=== PATIENT | female | born 1990 | race American Indian/Alaskan Native ===

== ENCOUNTER 2021-05-24 10:47 | Emergency (ER) | payer MEDICAID ==
[2021-05-24] MEDS ORDERED: ACETAMINOPHEN 500 MG TAB PO STA (11:28)
[2021-05-24] MEDS ORDERED: IBUPROFEN 800 MG TAB PO STA (11:28)
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
[2021-05-24 13:28] VITALS: BP 119/79
== END 2021-05-24 15:25 | disposition home or self-care (01) ==
LOC: ED 10:47
DX: M54.5 Low back pain (principal); V89.2XXA Person injured in unspecified motor-vehicle accident, traffic, initial encounter; Y93.89 Activity, other specified; Y92.89 Other specified places as the place of occurrence of the external cause; Y99.8 Other external cause status
CPT/HCPCS: 72100; 99283

== ENCOUNTER 2021-05-25 12:30 | Emergency (ER) | payer MEDICAID ==
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
[2021-05-25 13:32] VITALS: BP 125/84
== END 2021-05-25 13:29 | disposition home or self-care (01) ==
LOC: ED 12:30
DX: M54.5 Low back pain (principal); Z90.710 Acquired absence of both cervix and uterus; V87.7XXA Person injured in collision between other specified motor vehicles (traffic), initial encounter; Y93.89 Activity, other specified; Y92.89 Other specified places as the place of occurrence of the external cause; Y99.8 Other external cause status
CPT/HCPCS: 99282